=== PATIENT | male | born 1960 | race Caucasian/White ===

== ENCOUNTER 2019-08-03 15:25 | Emergency (ER) | payer MEDICAID ==
[~2019-08-03] VITALS: Ht 182.9 cm; Wt 77.3 kg
[2019-08-03 15:28] VITALS: Ht 182.9 cm; Wt 77.3 kg
[2019-08-03] MEDS ORDERED: ATROVENT 0.02%2.5 ML (15:29)
[2019-08-03 16:30] LABS: BASOPHILS 0.3 % (0-2); EOSINOPHILS 2.4 % (0-7); HEMATOCRIT 39.5 % (42.0-54.0); HEMOGLOBIN 14.4 g/dL (13.5-17.5); IMMATURE GRANULOCYTES 0.3 % (0-5); LYMPHOCYTES 21.7 % (15-50); MCH 33.1 pg (26.0-34.0); MCHC 36.5 g/dL (31.0-37.0); MCV 90.8 fL (80.0-100.0); MEAN PLATELET VOLUME 10.1 fL (7.4-10.4); MONOCYTES 11.6 % (2-11); NEUTROPHILS 63.7 % (40-80); PLATELET COUNT 219 10x3/uL (130-400); RBC 4.35 10x6/uL (4.20-6.10); RDW 12.1 % (11.5-14.5); WBC 7.9 10x3/uL (4.8-10.8)
[2019-08-03 16:34] LABS: INR 1.05 (0.85-1.17); PROTIME 13.2 SECONDS (11.6-15.0)
[2019-08-03 16:35] LABS: APTT 39.6 SECONDS (22.8-39.4)
[2019-08-03 16:42] LABS: ALBUMIN 3.6 g/dL (3.4-5.0); ALKALINE PHOSPHATASE 93 U/L (46-116); ALT (SGPT) 55 U/L (10-68); BILIRUBIN - TOTAL 0.49 mg/dL (0.2-1.3); CALC OSMOLALITY 280 mosm/kg (275-300); CALCIUM 8.6 mg/dL (8.5-10.1); CARBON DIOXIDE 23.1 mmol/L (21.0-32.0); CHLORIDE - SERUM 106 mmol/L (98-107); GLUCOSE 96 mg/dL (74-106); POTASSIUM - SERUM 3.7 mmol/L (3.5-5.1); PROTEIN - SERUM 6.4 g/dL (6.4-8.2); SODIUM 141 mmol/L (136-145); UREA NITROGEN 13 mg/dL (7-18); eGFR NON AFRICAN AMERICAN 82 mL/min (90-120)
[2019-08-03 16:53] LABS: CKMB 11.7 U/L (0.0-3.6); PRO BNP 164 pg/mL (0-125); TROPONIN-I < 0.017 ng/mL (0.000-0.060)
[2019-08-03 16:54] LABS: CREATINE KINASE 3033 UL (21-232)
[2019-08-03] MEDS ORDERED: ATROVENT 0.02%2.5 ML UPD (19:57)
[2019-08-03] MEDS ORDERED: ALBUTEROL SULF8.5 GM INH (19:57)
[2019-08-03 20:41] VITALS: BP 97/48
== END 2019-08-03 20:41 | disposition home or self-care (01) ==
LOC: D.ER 15:25
PROVIDERS: Family Medicine
DX: J44.1 Chronic obstructive pulmonary disease with (acute) exacerbation (principal); M19.071 Primary osteoarthritis, right ankle and foot

== ENCOUNTER 2019-08-08 10:57 | Emergency (ER) | payer MEDICAID ==
[~2019-08-08] VITALS: Ht 182.9 cm; Wt 89.3 kg
[~2019-08-08 10:57] MED LIST: ALBUTEROL SULF8.5 GM INH; ATROVENT 0.02%2.5 ML; ATROVENT 0.02%2.5 ML UPD
[2019-08-08 11:03] VITALS: Ht 182.9 cm; Wt 89.3 kg
[2019-08-08] MEDS ORDERED: ALBUTEROL2.5 MG/3 M INH (11:30)
[2019-08-08 11:31] LABS: BASOPHILS 0.3 % (0-2); EOSINOPHILS 1.9 % (0-7); HEMOGLOBIN 15.2 g/dL (13.5-17.5); IMMATURE GRANULOCYTES 0.8 % (0-5); LYMPHOCYTES 16.6 % (15-50); MCH 33.8 pg (26.0-34.0); MCHC 36.2 g/dL (31.0-37.0); MCV 93.3 fL (80.0-100.0); MEAN PLATELET VOLUME 10.2 fL (7.4-10.4); MONOCYTES 8.9 % (2-11); NEUTROPHILS 71.5 % (40-80); PLATELET COUNT 232 10x3/uL (130-400); RDW 12.5 % (11.5-14.5); WBC 8.6 10x3/uL (4.8-10.8)
[2019-08-08 11:47] LABS: ALBUMIN 3.9 g/dL (3.4-5.0); ALKALINE PHOSPHATASE 96 U/L (46-116); ALT (SGPT) 44 U/L (10-68); BILIRUBIN - TOTAL 0.55 mg/dL (0.2-1.3); CALC OSMOLALITY 279 mosm/kg (275-300); CALCIUM 8.7 mg/dL (8.5-10.1); CARBON DIOXIDE 25.5 mmol/L (21.0-32.0); CHLORIDE - SERUM 106 mmol/L (98-107); GLUCOSE 110 mg/dL (74-106); POTASSIUM - SERUM 4.2 mmol/L (3.5-5.1); PROTEIN - SERUM 7.1 g/dL (6.4-8.2); SODIUM 139 mmol/L (136-145); UREA NITROGEN 15 mg/dL (7-18); eGFR NON AFRICAN AMERICAN 82 mL/min (90-120)
[2019-08-08 11:48] LABS: APPEARANCE CLEAR (CLEAR); BILIRUBIN NEGATIVE (NEGATIVE); COLOR YELLOW (YELLOW); GLUCOSE NEGATIVE (NEGATIVE); KETONE NEGATIVE (NEGATIVE); NITRITE NEGATIVE (NEGATIVE); PROTEIN NEGATIVE (NEGATIVE); SPECIFIC GRAVITY 1.015 (1.005-1.020); UROBILINOGEN NORMAL (NORMAL)
[2019-08-08 12:34] VITALS: BP 108/62
== END 2019-08-08 12:34 | disposition home or self-care (01) ==
LOC: D.ER 10:57
PROVIDERS: Emergency Medicine
DX: R10.30 Lower abdominal pain, unspecified (principal); M79.671 Pain in right foot; Z76.0 Encounter for issue of repeat prescription; J44.9 Chronic obstructive pulmonary disease, unspecified; F17.210 Nicotine dependence, cigarettes, uncomplicated